=== PATIENT | female | born 1945 | race African-American/Black ===

== ENCOUNTER 2017-06-17 04:31 | Emergency (ER) | payer MEDICARE, OTHER ==
[~2017-06-17] VITALS: Ht 154.9 cm; Wt 88.5 kg
[2017-06-17] MEDS ORDERED: ATENOLOL25 MG ORAL (04:40)
[2017-06-17] MEDS ORDERED: HYDROCHLOROTHIA25 MG ORAL (04:40)
[2017-06-17] MEDS ORDERED: Ketorolac 30mg Inj IV ONE (05:00)
[2017-06-17 05:41] VITALS: BP 154/83
[2017-06-17 05:43] LABS: BASOPHILS % (AUTO) 1.6 % (0.0-2.0); EOSINOPHILS % (AUTO) 1.2 % (0.0-3.0); HEMATOCRIT 44.4 % (37.0-47.0); HEMOGLOBIN 14.9 G/DL (12.0-16.0); LYMPHOCYTES % (AUTO) 20.7 % (20.0-45.0); MEAN CORPUSCULAR VOLUME 91 FL (80-99); MONOCYTES % (AUTO) 5.7 % (1.0-10.0); NEUTROPHILS % (AUTO) 70.8 % (45.0-75.0); PLATELET COUNT 172 K/UL (150-450); RED BLOOD COUNT 4.88 M/UL (4.20-5.40); RED CELL DISTRIBUTION WIDTH 12.4 % (11.6-14.8); WHITE BLOOD COUNT 8.3 K/UL (4.8-10.8)
[2017-06-17 05:55] LABS: ANION GAP 9 mmol/L (5-15); BLOOD UREA NITROGEN 23 mg/dL (7-18); CALCIUM 8.9 MG/DL (8.5-10.1); CARBON DIOXIDE 26 MMOL/L (21-32); CHLORIDE 104 MMOL/L (98-107); CREATININE 1.3 MG/DL (0.55-1.30); POTASSIUM 4.3 MMOL/L (3.5-5.1); SODIUM 139 MMOL/L (136-145)
[2017-06-17 06:09] LABS: ALANINE AMINOTRANSFERASE 24 U/L (12-78); ALBUMIN 3.6 G/DL (3.4-5.0); ALBUMIN/GLOBULIN RATIO 1.1 (1.0-2.7); ALKALINE PHOSPHATASE 81 U/L (46-116); ASPARTATE AMINO TRANSFERASE 20 U/L (15-37); BILIRUBIN,TOTAL 0.2 MG/DL (0.2-1.0); CREATINE KINASE 112 U/L (26-308)
--- NOTE | 2017-06-17 06:19 | Emergency Room Report ---
History of Present Illness General Chief Complaint: Pain Source: Patient Present Illness HPI Patient had right upper quadrant pain earlier in the day. She's never had pain there before. No prior h/o stones. No NVD during the pain. Lasted 1 hour and went away on own. Pain was 6-7/10 and now completely resolved. She was awakened in the middle of the night with muscle spasms in her arms and her legs. Both arms were aching. It was 8/10 and seemed like cramping. No chest pain or palpitations. No fevers. She's never had this problem before. The pain was quite severe when it began. Somewhat better now. She is on antihypertensive medications with diuretic. Recently on medrol dose pack for "tickle in throat" and cough which had been going on for 3 weeks. This is somewhat better on the steroids. No fevers, chills, headache, change vision. No dysuria. No rashes. No trauma. Allergies: Coded Allergies: No Known Allergies (Unverified , 06/17/17) Patient History Past Medical History: see triage record Social History: Denies: smoking Social History Narrative with son Now: No Reviewed Nursing Documentation: PMH: Agreed, PSxH: Agreed Nursing Documentation-PMH Past Medical History: No History, Except For Hx Hypertension: Yes Review of Systems All Other Systems: negative except mentioned in HPI Physical Exam Vital Signs Date Time Temp Pulse Resp B/P (MAP) Pulse Ox O2 Delivery O2 Flow Rate FiO2 06/17/17 04:36 98.8 76 14 149/80 96 Room Air Sp02 EP Interpretation: reviewed, normal General Appearance: well appearing, no apparent distress, GCS 15 Head: normocephalic, atraumatic Eyes: bilateral eye normal inspection, bilateral eye PERRL, bilateral eye EOMI ENT: moist mucus membranes Neck: supple Respiratory: lungs clear, normal breath sounds Cardiovascular #1: regular rate, rhythm, edema - bilat = trace to + Cardiovascular #2: 2+ radial (R) Gastrointestinal: normal inspection, normal bowel sounds, non tender, no mass, non-distended Musculoskeletal: back normal, gait/station normal, normal range of motion, tender - all 4 extremities Neurologic: alert, oriented x3, motor strength/tone normal, DTRs symmetric, sensory intact, normal gait, speech normal Psychiatric: mood/affect normal Skin: normal inspection, warm/dry Medical Decision Making Diagnostic Impression: Primary Impression: Muscle cramps ER Course Patient with muscle pain which woke her up. Ddx: electrolyte abnormality, AMI, vasculitis, rhabdomyolysis, renal failure amongst others. No evidence of CVA. On diuretic and treated for hypertension. Also recent steroid use (still on taper). Abdominal pain unclear if related. Consider gall bladder disease, PUD , colic amongst others. Evaluation for medical emergencies with EKG, CXR, labs. Treatment with small dose of Toradol and mild hydration (edema suggests total body sodium excess). EKG without injury. CXR with tortuosity. Labs with normal WBC and electrolytes. ESR = 2. Slight elevated BUN and creat. Improved with treatment. Patient stable for outpatient observation and treatment. Laboratory Tests Test 06/17/17 05:27 06/17/17 06:45 White Blood Count 8.3 K/UL (4.8-10.8) Red Blood Count 4.88 M/UL (4.20-5.40) Hemoglobin 14.9 G/DL (12.0-16.0) Hematocrit 44.4 % (37.0-47.0) Mean Corpuscular Volume 91 FL (80-99) Mean Corpuscular Hemoglobin 30.6 PG (27.0-31.0) Mean Corpuscular Hemoglobin Concent 33.6 G/DL (32.0-36.0) Red Cell Distribution Width 12.4 % (11.6-14.8) Platelet Count 172 K/UL (150-450) Mean Platelet Volume 8.1 FL (6.5-10.1) Neutrophils (%) (Auto) 70.8 % (45.0-75.0) Lymphocytes (%) (Auto) 20.7 % (20.0-45.0) Monocytes (%) (Auto) 5.7 % (1.0-10.0) Eosinophils (%) (Auto) 1.2 % (0.0-3.0) Basophils (%) (Auto) 1.6 % (0.0-2.0) Erythrocyte Sedimentation Rate Pending Prothrombin Time 10.0 SEC (9.30-11.50) Prothrombin Time INR 1.0 (0.9-1.1) PTT 25 SEC (23-33) Sodium Level 139 MMOL/L (136-145) Potassium Level 4.3 MMOL/L (3.5-5.1) Chloride Level 104 MMOL/L (98-107) Carbon Dioxide Level 26 MMOL/L (21-32) Anion Gap 9 mmol/L (5-15) Blood Urea Nitrogen 23 mg/dL (7-18) H Creatinine 1.3 MG/DL (0.55-1.30) Estimate Glomerular Filtration Rate mL/min (>60) Glucose Level 146 MG/DL (74-106) H Calcium Level 8.9 MG/DL (8.5-10.1) Magnesium Level 2.0 MG/DL (1.8-2.4) Total Bilirubin 0.2 MG/DL (0.2-1.0) Aspartate Amino Transferase (AST) 20 U/L (15-37) Alanine Aminotransferase (ALT) 24 U/L (12-78) Alkaline Phosphatase 81 U/L (46-116) Total Creatine Kinase 112 U/L (26-308) Troponin I 0.000 ng/mL (0.000-0.056) Pro-B-Type Natriuretic Peptide 50 pg/mL (0-125) Total Protein 6.8 G/DL (6.4-8.2) Albumin 3.6 G/DL (3.4-5.0) Globulin 3.2 g/dL Albumin/Globulin Ratio 1.1 (1.0-2.7) Urine Color Pale yellow Urine Appearance Clear Urine pH 7 (4.5-8.0) Urine Specific [place] 1.005 (1.005-1.035) Urine Protein Negative (NEGATIVE) Urine Glucose (UA) Negative (NEGATIVE) Urine Ketones Negative (NEGATIVE) Urine Occult Blood Negative (NEGATIVE) Urine Nitrite Negative (NEGATIVE) Urine Bilirubin Negative (NEGATIVE) Urine Urobilinogen Normal MG/DL (0.0-1.0) Urine Leukocyte Esterase Negative (NEGATIVE) EKG Diagnostic Results Rate: normal Rhythm: NSR ST Segments: no acute changes Rhythm Strip Diag. Results EP Interpretation: yes Rhythm: NSR, no PVC's, no ectopy Chest X-Ray Diagnostic Results Chest X-Ray Diagnostic Results : Chest X-Ray Ordered: Yes # of Views/Limited/Complete: 1 View Indication: Other Interpretation: no consolidation, no effusion, no pneumothorax, other - tortuous aorta Impression: No acute disease Electronically Signed by: Electronically signed by Ej Davis MD Last Vital Signs Date Time Temp Pulse Resp B/P (MAP) Pulse Ox O2 Delivery O2 Flow Rate FiO2 06/17/17 07:44 98.8 68 13 171/75 99 Room Air Status: improved Disposition: HOME, SELF-CARE Condition: Improved Scripts Tramadol Hcl* (ULTRAM*) 50 Mg Tablet 50 MG ORAL Q6H Y for For Pain, #6 TAB 0 Refills Prov: Ej Davis M.D. 06/17/17 Referrals: [facility],REFERRING (PCP) Ej Davis M.D. Jun 17, 2017 06:19
[2017-06-17 07:04] LABS: APPEARANCE,URINE CLEAR; BILIRUBIN, URINE NEGATIVE (NEGATIVE); COLOR,URINE PALE YELLOW; GLUCOSE, URINE (UA) NEGATIVE (NEGATIVE); KETONES,URINE NEGATIVE (NEGATIVE); LEUKOCYTE ESTERASE ,URINE NEGATIVE (NEGATIVE); NITRITE,URINE NEGATIVE (NEGATIVE); PH,URINE 7 (4.5-8.0); PROTEIN,URINE NEGATIVE (NEGATIVE); UROBILINOGEN,URINE NORMAL MG/DL (0.0-1.0)
[2017-06-17] MEDS ORDERED: TRAMADOL HCL50 MG ORAL (07:26)
[2017-06-17 07:44] VITALS: BP 171/75
--- NOTE | 2017-06-17 10:19 | Diagnostic Imaging Report ---
Indication: Chest pain Comparison: 07/04/2008 A single view chest radiograph was obtained. Findings: No definite infiltrate or pulmonary vascular congestion identified. The heart is enlarged. The aorta is mildly enlarged consistent with atherosclerotic vascular disease. The bones are osteopenic. Impression: No acute disease
--- NOTE | 2017-06-17 19:30 | Cardiology Report ---
APPROVED REPORT EKG Measurement Heart [id number] Normal sinus rhythm Left axis deviation Right bundle branch block Abnormal ECG
== END 2017-06-17 07:49 | disposition home or self-care (01) ==
LOC: EMR 04:56
DX: R25.2 Cramp and spasm (principal); I10 Essential (primary) hypertension; R10.11 Right upper quadrant pain; R07.9 Chest pain, unspecified
CPT/HCPCS: 36415; 71045; 80053; 81003; 82550; 83735; 83880; 84484; 85025; 85610; 85651; 85730; 93005; 96361; 96374; 99284; J1885

== ENCOUNTER 2017-08-03 15:53 | Emergency (ER) | payer MEDICARE ==
[~2017-08-03] VITALS: Ht 154.9 cm; Wt 89.8 kg
[~2017-08-03 15:53] MED LIST: ATENOLOL25 MG ORAL; HYDROCHLOROTHIA25 MG ORAL; TRAMADOL HCL50 MG ORAL
[2017-08-03 16:01] VITALS: BP 135/62
--- NOTE | 2017-08-03 16:25 | Emergency Room Report ---
History of Present Illness General Chief Complaint: Upper Respiratory Illness Source: Patient, Medical Record Present Illness HPI 71 yo female patient presents to ER complaining of body aches, flu-like symptoms and cough for a few weeks. Reports seen by primary care provider yesterday for similar symptoms. Complains of cough with green phlegm, not taking any medications currently. Denies hemoptysis. Complains of difficulty urinating. Denies dysuria, hematuria. Denies discharge. Complains of back and shoulder pain, denies hx of injury. Denies hx of cancer. Denies bowel or bladder incontinence. Also complains of runny nose. Reports using Afrin during this time. Reports chest x-ray performed yesterday, negative. Denies fever, chest pain, SOB. Denies nausea, vomiting, diarrhea, abdominal pain. Allergies: Coded Allergies: No Known Allergies (Unverified , 06/17/17) Patient History Past Medical History: see triage record Reviewed Nursing Documentation: PMH: Agreed; PSxH: Agreed Nursing Documentation-PMH Past Medical History: No History, Except For Hx Hypertension: Yes Review of Systems All Other Systems: negative except mentioned in HPI Physical Exam Vital Signs Date Time Temp Pulse Resp B/P (MAP) Pulse Ox O2 Delivery O2 Flow Rate FiO2 08/03/17 16:01 98.9 68 18 135/62 96 Room Air 99.0 Sp02 EP Interpretation: reviewed, normal General Appearance: well appearing, no apparent distress, alert, GCS 15, non- toxic Head: normocephalic, atraumatic Eyes: bilateral eye normal inspection, bilateral eye PERRL ENT: hearing grossly normal, normal pharynx, no angioedema, normal voice, TMs + canals normal, uvula midline, moist mucus membranes Neck: full range of motion Respiratory: lungs clear, normal breath sounds, no rhonchi, no respiratory distress, no accessory muscle use, no wheezing, speaking full sentences Gastrointestinal: non tender, soft, no mass, non-distended, no guarding, no rebound Genitourinary: no CVA tenderness Musculoskeletal: back normal, digits/nails normal, gait/station normal, normal range of motion, non-tender, no calf tenderness, other - no bony tenderness, no stepoff Neurologic: alert, oriented x3, responsive, motor strength/tone normal, sensory intact Psychiatric: mood/affect normal Skin: no rash Lymphatic: no adenopathy Medical Decision Making PA Attestation Dr. Villarreal is my supervising Physician whom patient management has been discussed with. Diagnostic Impression: Primary Impression: Back pain Additional Impressions: Shoulder pain Urinary tract infection Cough ER Course Pt presents to ED c/o cough, back pain, shoulder, pain and urinary symptoms. DDX considered but are not limited to influenza, viral URI, strep throat, rhinitis, sinusitis, otitis media, UTI Denies recent travel, hemoptysis, no calf swelling, low suspicion for PE per Well's criteria. VITAL SIGNS are WNL, patient is afebrile. Ordered UA and cough medication. ER COURSE: UA results positive for leukocyte esterase and WBCs, indicate UTI, will treat with abx. Results discussed with patient. PE benign Drink plenty of fluids. Take Tylenol for pain symptoms. Cough likely viral in nature, does not require abx at this time. Do not use Afrin, stop use, can cause rhinitis medicamentosa. Patient is resting comfortably in chair, nontoxic appearing, in no acute distress. Patient states they feel better following medication. Reports no longer coughing in ER. DISCHARGE: Rx given for Tylenol/Acetaminophen Rx given for Promethazine syrup for cough sx. Rx provided for Keflex for UTI At this time pt is stable for d/c to home. Patient is resting comfortably, in no acute distress, nontoxic appearing. Patient to take medications as instructed Will provide with patient care instructions and any necessary prescriptions. Care plan and follow-up instructions provided. Patient instructed to follow-up with primary care provider in 3 - 5 days. Patient questions asked and answered. Patient reports understanding and agreement to treatment plan. ER precautions given. Patient instructed to return to ER immediately for any new or worsening of symptoms including but not limited to increasing SOB, persistent fever. Labs Test 08/03/17 16:50 Urine Color Pale yellow Urine Appearance Slightly cloudy Urine pH 5 (4.5-8.0) Urine Specific [place] 1.005 (1.005-1.035) Urine Protein Negative (NEGATIVE) Urine Glucose (UA) Negative (NEGATIVE) Urine Ketones Negative (NEGATIVE) Urine Occult Blood 1+ (NEGATIVE) Urine Nitrite Negative (NEGATIVE) Urine Bilirubin Negative (NEGATIVE) Urine Urobilinogen Normal MG/DL (0.0-1.0) Urine Leukocyte Esterase 3+ (NEGATIVE) Urine RBC 2-4 /HPF (0 - 2) Urine WBC 20-30 /HPF (0 - 2) Urine Squamous Epithelial Cells Moderate /LPF (NONE/OCC) Urine Bacteria Many /HPF (NONE) Last Vital Signs Date Time Temp Pulse Resp B/P (MAP) Pulse Ox O2 Delivery O2 Flow Rate FiO2 08/03/17 16:01 68 18 Room Air 08/03/17 16:01 98.9 135/62 96 98.9 Disposition: HOME, SELF-CARE Condition: Stable Scripts Promethazine Hcl (PROMETHAZINE HCL*) 6.25 Mg/5 Ml Syrup 5 ML ORAL Q8H, #120 ML 0 Refills Prov: Feliz Martin 08/03/17 Acetaminophen* (TYLENOL EXTRA STRENGTH*) 500 Mg Tablet 500 MG ORAL Q8H PRN for Prn Headache/Temp > 101, #30 TAB 0 Refills Prov: Feliz Martin 08/03/17 Cephalexin* (KEFLEX*) 500 Mg Capsule 500 MG ORAL EVERY 12 HOURS, #14 CAP 0 Refills Prov: Feliz Martin 08/03/17 Patient Instructions: Back Pain, Adult, [id number], Cough, Adult, Easy-to- Read, Shoulder Pain, [id number], Urinary Tract Infection, [id number] Additional Instructions: Patient instructed to follow up with primary care provider and discuss further referral to orthopedics. Patient instructed on RICE method: rest, ice, compression, elevation. Patient instructed to WBAT. Take medications as directed. Patient questions asked and answered. ER precautions given, patient instructed to return to ER immediately for any new or worsening of symptoms. Feliz Martin Aug 03, 2017 16:25
[2017-08-03] MEDS ORDERED: Promethazine Plain 6.25mg/5ml ORAL ONE (17:15)
[2017-08-03 17:18] LABS: APPEARANCE,URINE SLIGHTLY CLOUDY; BILIRUBIN, URINE NEGATIVE (NEGATIVE); COLOR,URINE PALE YELLOW; GLUCOSE, URINE (UA) NEGATIVE (NEGATIVE); KETONES,URINE NEGATIVE (NEGATIVE); LEUKOCYTE ESTERASE ,URINE 3+ (NEGATIVE); NITRITE,URINE NEGATIVE (NEGATIVE); PH,URINE 5 (4.5-8.0); PROTEIN,URINE NEGATIVE (NEGATIVE); UROBILINOGEN,URINE NORMAL MG/DL (0.0-1.0)
[2017-08-03] MEDS ORDERED: TYLENOL EXTRA500 MG ORAL (17:43)
[2017-08-03] MEDS ORDERED: LIDOCAINE700 M1 TP (17:43)
[2017-08-03] MEDS ORDERED: CEPHALEXIN500 MG ORAL (17:43)
[2017-08-03] MEDS ORDERED: PROMETHAZI6.25 MG/1 ORAL (17:47)
[2017-08-03 17:57] VITALS: BP 128/66
== END 2017-08-03 17:56 | disposition home or self-care (01) ==
LOC: EMR 17:45
DX: M54.9 Dorsalgia, unspecified (principal); M25.519 Pain in unspecified shoulder; R05 Cough; I10 Essential (primary) hypertension
CPT/HCPCS: 81003; 87086; 87181; 99284

== ENCOUNTER 2018-02-20 19:54 | Emergency (ER) | payer MEDICARE ==
[~2018-02-20] VITALS: Ht 157.5 cm; Wt 88.5 kg
[~2018-02-20 19:54] MED LIST changes: +CEPHALEXIN500 MG ORAL; +LIDOCAINE700 M1 TP; +PROMETHAZI6.25 MG/1 ORAL; +TYLENOL EXTRA500 MG ORAL
[2018-02-20 20:13] VITALS: BP 147/88
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
[2018-02-20] MEDS ORDERED: HYDROcodone/Acetamin 7.5/325 tab ORAL ONE (20:30)
[2018-02-20] MEDS ORDERED: IBUPROFEN600 MG ORAL (20:50)
[2018-02-20] MEDS ORDERED: NORCO 5-325 TA1 EACH ORAL (20:50)
[2018-02-20 21:00] VITALS: BP 140/82
--- NOTE | 2018-02-21 09:30 | Diagnostic Imaging Report ---
Indication: Knee pain Technique: 3 views of the right knee Comparison: None Findings: There is medial compartmental degenerative joint space narrowing and mild patellofemoral degenerative change. No acute fractures. No dislocations. No suprapatellar effusion. Impression: Degenerative changes. No acute bony trauma
== END 2018-02-20 21:00 | disposition home or self-care (01) ==
LOC: EMR 20:30
DX: M25.561 Pain in right knee (principal); I10 Essential (primary) hypertension
CPT/HCPCS: 99283